=== PATIENT | male | born 1945 | race Caucasian/White ===

== ENCOUNTER 2022-02-19 00:27 | Emergency (ER) | payer OTHER ==
[~2022-02-19] VITALS: Ht 175.3 cm; Wt 90.7 kg
--- NOTE | 2022-02-19 00:42 | NUR ---
pt bib ra for bilat feet swelling and pain.
--- NOTE | 2022-02-19 00:52 | NUR ---
Dr. Germain at bedside for MSe.
--- NOTE | 2022-02-19 01:01 | NUR ---
Dr. Germain at bedside for MSE.
--- NOTE | 2022-02-19 01:19 | NUR ---
called security pt is acting hostile yelling and screaming to staff and er doctor. pt refusing medical care.
[2022-02-19] MEDS ORDERED: diphenhydrAMINE 50 MG/1 ML VIAL ONE (01:27)
[2022-02-19] MEDS ORDERED: HALOPERIDOL LACTATE 5 MG/1 ML VIAL ONE (01:28)
--- NOTE | 2022-02-19 01:59 | NUR ---
Dr. Germain in the room speaking with the pt. pt was medicated to help him calm down.
[2022-02-19] MEDS ORDERED: HALOPERIDOL LACTATE 5 MG/1 ML VIAL IM ONE (02:00)
[2022-02-19] MEDS ORDERED: diphenhydrAMINE 50 MG/1 ML VIAL IM ONE (02:00)
--- NOTE | 2022-02-19 02:14 | NUR ---
asked pt about doing an ekg pt refused pt asked for blanket only, pt only lays on gourney will do nothing else.
[2022-02-19] MEDS ORDERED: KETAMINE HCL 500 MG/10 ML INJ ONE (02:25)
[2022-02-19] MEDS ORDERED: KETAMINE HCL 500 MG/10 ML INJ IV ONE (02:30)
[2022-02-19 03:13] LABS: HEMATOCRIT 41.8 % (36.7-47.1); MEAN CORPUSCULAR HEMOGLOBIN 25.7 uug (23.8-33.4); MEAN CORPUSCULAR VOLUME 76.6 fL (73.0-96.2); PLATELET COUNT (AUTO) 195 K/uL (152-348)
--- NOTE | 2022-02-19 03:22 | NUR ---
attempted to place an iv to this pt, i was unsuccessful. the pt will not allow another attempt.
[2022-02-19 03:32] LABS: ETHANOL < 3 MG/DL (0-0)
[2022-02-19 03:49] LABS: *AMPHETAMINE, URINE NEGATIVE (NEGATIVE); *CANNABINOID, URINE NEGATIVE (NEGATIVE); *COCCAINE, URINE NEGATIVE (NEGATIVE); *OPIATE, URINE NEGATIVE (NEGATIVE); *PHENCYCLIDINE SCREEN,URINE NEGATIVE (NEGATIVE)
[2022-02-19 04:02] LABS: ALANINE AMINOTRANSFERASE 31 U/L (16-63); ALKALINE PHOSPHATASE 105 U/L (50-136); ASPARTATE AMINOTRANSFERASE 17 U/L (15-37); BILIRUBIN,DIRECT 0.1 mg/dL (0.0-0.2); BILIRUBIN,TOTAL 0.2 mg/dL (0.2-1.0); CARBON DIOXIDE 27 mmol/L (21-32); CHLORIDE 105 mmol/L (98-107); CREATINE KINASE, TOTAL 380 U/L (39-308); CREATININE 1.5 mg/dL (0.6-1.3); GLUCOSE 138 mg/dL (74-106); POTASSIUM 3.7 mmol/L (3.5-5.1); TOTAL PROTEIN, SERUM 7.6 g/dL (6.4-8.2); UREA NITROGEN, BLOOD 32 mg/dL (7-18)
[2022-02-19 04:18] LABS: ACETAMINOPHEN < 2.0 ug/mL (10-30)
--- NOTE | 2022-02-19 04:42 | NUR ---
ultrasound at bedside.
[2022-02-19] MEDS ORDERED: IOHEXOL 350 100 ML INFUS..BTL ONE (04:47)
[2022-02-19] MEDS ORDERED: IV NORMAL SALINE 250 ML IV ONE (04:48)
[2022-02-19] MEDS ORDERED: SWABABLE VALVE TRANSFER SET EA MC ONE (04:48)
--- NOTE | 2022-02-19 05:05 | NUR ---
pt. is having ultrasound performed.
--- NOTE | 2022-02-19 05:57 | NUR ---
waiting for IV access, RN CWR.
--- NOTE | 2022-02-19 06:10 | NUR ---
Patient refused IV after multiple attempts, made aware.
--- NOTE | 2022-02-19 06:16 | NUR ---
Called [facility] to arrange transfer.
[2022-02-19] MEDS ORDERED: ZIPRASIDONE MESYLATE 20 MG VIAL IM ONE ×2 (06:21→06:30)
[2022-02-19] MEDS ORDERED: LORAZEPAM 2 MG/1 ML VIAL ONE (06:22)
[2022-02-19] MEDS ORDERED: LORAZEPAM 2 MG/1 ML VIAL IM ONE (06:30)
[2022-02-19] MEDS ORDERED: IV NS 1000 ML 1,000 ML IV ONE (07:15)
--- NOTE | 2022-02-19 11:30 | NUR ---
Patient medically cleared by doctor.
--- NOTE | 2022-02-19 12:07 | NUR ---
Followed up with [facility] who states that they will call back when they find someone to evaluate the patient in person or over telephone.
--- NOTE | 2022-02-19 12:46 | NUR ---
Spoke with Yari from [facility] who communicated that patient will be potentially treated at [facility]. Faxed over to [facility] patient's chart that they will review and follow up with an ETA for a clinician to come and evaluate patient.
--- NOTE | 2022-02-19 16:40 | NUR ---
Patient discharged to home in stable condition. Verbal after care instructions given by Dr. Staples. Patient verbalizes understanding of instructions. Stressed follow up or return to ER for worsening s/s. Assisted patient to taxi by wheelchair.
[2022-02-19 16:59] VITALS: BP 163/163
== END 2022-02-19 17:02 | disposition home or self-care (01) ==
LOC: ER 00:32
DX: M79.672 Pain in left foot (principal); M79.671 Pain in right foot; N28.9 Disorder of kidney and ureter, unspecified; F31.9 Bipolar disorder, unspecified; I44.0 Atrioventricular block, first degree; Z95.828 Presence of other vascular implants and grafts; Z87.898 Personal history of other specified conditions; G62.9 Polyneuropathy, unspecified; M10.9 Gout, unspecified; R10.13 Epigastric pain; I49.3 Ventricular premature depolarization; Z20.822 Contact with and (suspected) exposure to COVID-19
CPT/HCPCS: 36415; 36556; 74174; 76775; 80048; 80076; 80299; 80307; 80320; 82550; 85025; 87426; 93005; 93970; 96360; 96361; 96372 ×2; 99285; J1200; J1630; J2060; J3486; J3490; J7040; Q9967; A4663; G0480